=== PATIENT | male | born 1965 | race Caucasian/White ===

== ENCOUNTER 2018-10-29 07:03 | Emergency (ER) | payer OTHER ==
[2018-10-29 07:25] VITALS: BP 173/93
--- NOTE | 2018-10-29 07:55 | UC ---
Truncal Trauma HPI - HPI Summary HPI Summary: left side chest pain x 1 day injury at work as he was lifting a load overhead, felt a pop on the left side of the chest with sudden onset pain , pain is sharp , increase with movement and deep breathing no sob, no cough - History Of Current Complaint Chief Complaint: UCTrauma Stated Complaint: WC LEFT CHEST INJURY Time Seen by Provider: 10/29/18 07:27 Hx Obtained From: Patient Onset/Duration: Sudden Onset, Lasting Days - 1, Still Present Onset Of Pain: Immediate Severity Initially: Moderate Severity Currently: Moderate Pain Intensity: 5 Mechanism Of Injury: Twisted, Other - lifting something overhead at work Aggravating Factor(s): Movement, Deep Breathing Alleviating factor(s): Rest Associated Signs And Symptoms: Positive: Chest Pain. Negative: SOB, Cough, Hematuria, Abdominal Pain, Fever, Nausea, Vomiting - Allergies/Home Medications Allergies/Adverse Reactions: Allergies Allergy/AdvReac Type Severity Reaction Status Date / Time acetaminophen [From Tylenol] Allergy Intermediate Rash Verified 10/29/18 07:23 Home Medications: Home Medications NK [No Home Medications Reported] 10/29/18 [History Confirmed 10/29/18] PMH/Surg Hx/FS Hx/Imm Hx Previously Healthy: Yes - Surgical History Surgical History: Yes Surgery Procedure, Year, and Place: hip , back surgery, appy - Family History Known Family History: Negative: Diabetes - Social History Alcohol Use: Occasionally Substance Use Type: None Smoking Status (MU): Never Smoked Tobacco Review of Systems All Other Systems Reviewed And Are Negative: Yes Constitutional: Positive: Negative Skin: Positive: Negative Eyes: Positive: Negative ENT: Positive: Negative Respiratory: Positive: Negative Is Patient Immunocompromised?: No Physical Exam Triage Information Reviewed: Yes Appearance: Well-Appearing, No Pain Distress, Well-Nourished Vital Signs: Initial Vital Signs Temp 98.2 F 10/29/18 07:20 Pulse 68 10/29/18 07:20 Resp 20 10/29/18 07:20 BP 173/93 10/29/18 07:20 Pulse Ox 96 10/29/18 07:20 Vital Signs Reviewed: Yes Eye Exam: Normal Eyes: Positive: Conjunctiva Clear ENT: Positive: Normal ENT inspection, Hearing grossly normal, Pharynx normal Neck exam: Normal Neck: Positive: Supple, Nontender, No Lymphadenopathy Respiratory: Positive: Chest non-tender, Lungs clear, Normal breath sounds Cardiovascular: Positive: RRR, No Murmur, Pulses Normal Abdominal Exam: Normal Abdomen Description: Positive: Nontender Bowel Sounds: Positive: Present Musculoskeletal: Positive: Other: - tenderness left side chest wall, increase pain with twisting Diagnostics - Laboratory Diagnostic Studies Completed/Ordered: chest xray : IMPRESSION: 1. NO EVIDENCE FOR ACTIVE CARDIOPULMONARY DISEASE. 2. 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 Truncal Trauma Course/Dx - Differential Dx/Diagnosis Provider Diagnosis: Intercostal muscle strain Discharge - Sign-Out/Discharge Documenting (check all that apply): Patient Departure All imaging exams completed and their final reports reviewed: Yes - Discharge Plan Condition: Stable Disposition: HOME Patient Education Materials: Chest Wall Pain (ED) Referrals: Kavon Leung DO [Primary Care Provider] - If Needed - Billing Disposition and Condition Condition: STABLE Disposition: Home
== END 2018-10-29 08:07 | disposition home or self-care (01) ==
LOC: UCCORT 07:03
DX: S29.011A Strain of muscle and tendon of front wall of thorax, initial encounter (principal); X50.0XXA Overexertion from strenuous movement or load, initial encounter; Y93.89 Activity, other specified; Y92.89 Other specified places as the place of occurrence of the external cause; Y99.0 Civilian activity done for income or pay; Z88.6 Allergy status to analgesic agent
CPT/HCPCS: 71046; 99201; G0463